=== PATIENT | female | born 1945 | race Caucasian/White ===

== ENCOUNTER → 2017-01-08 | Outpatient (CLI) | payer MEDICARE, OTHER | END | disposition home or self-care (01) | LOC: GMAM 14:37 | PROVIDERS: ATTEND Family Medicine | DX: I10 Essential (primary) hypertension (principal) ==

== ENCOUNTER → 2017-02-07 | Outpatient (CLI) | payer MEDICARE, OTHER ==
--- NOTE | 2017-02-07 12:04 | US ---
EXAM DESCRIPTION: Thyroid CLINICAL HISTORY: 71 years, Female, ABNORMAL CANDIDA, THYROID NODULE, SX/SX OF CIRC SYST COMPARISON: FINDINGS: Right lobe of thyroid 4.4 x 1.4 x 2.3 cm. Left lobe 4.1 x 1.2 x 2.0 cm. Isthmus 2 mm. To mildly complex nodules lower right lobe of the thyroid. Nodules hyperechoic centrally and hypoechoic periphery. These measure 1.9 x 1.7 x 1.8 cm and 1.3 x 1.3 x 1.3 cm. Slightly small nodule more superiorly in the right lobe 9 x 7 x 6 mm. Left lobe has a hypoechoic nodule well-circumscribed 5 x 4 x 4 mm lower portion IMPRESSION: Bilateral thyroid nodules identified, more on the right side. Largest nodule is less than 2 cm. None of the nodules appear particularly worrisome but consider follow-up study to assess for stability. Electronically signed by: Beto Vergara MD 02/07/2017 12:03 PM CDT
--- NOTE | 2017-02-07 12:17 | US ---
EXAM DESCRIPTION: Carotid Duplex CLINICAL HISTORY: 71 years, Female, ABNORMAL CANDIDA, carotid artery disease, SX/SX OF CIRC SYST COMPARISON: FINDINGS: Scattered moderate atherosclerotic change in the right common carotid artery. In the bulb with there is about 40% stenosis. Peak velocity internal carotid artery 95 cm/s. Ratio common carotid artery of 1.1. On the left side slightly more irregular plaque internal carotid artery. Stenosis in the bulb region about 26%. Stenosis in the proximal left internal carotid artery with mixed plaque about 25%. Peak velocity left internal carotid artery 86 cm/s. Ratio common carotid artery about 0.9. There is antegrade vertebral artery flow bilaterally IMPRESSION: 1. No hemodynamic significant lesion identified. Mild atherosclerotic changes in the carotids bilaterally, right slightly greater than left. Maximum stenosis about 40% or less. 2. Antegrade vertebral artery flow bilaterally Electronically signed by: Beto Vergara MD 02/07/2017 12:16 PM CDT
--- NOTE | 2017-02-07 12:29 | US ---
EXAM DESCRIPTION: Extremity,Lower Dontrell Arteries CLINICAL HISTORY: 71 years, Female, ABNORMAL CANDIDA, THYROID NODULE, SX/SX OF CIRC SYST , pain COMPARISON: None available FINDINGS: Scattered mild atherosclerotic change present in the right common femoral artery and superficial femoral artery. Triphasic waveforms throughout from the right groin to the runoff vessels. Velocities above the right trifurcation measure between about 70-110 cm/s. The peroneal and dorsalis pedis arteries had velocities about 60 cm/s. Posterior tibial artery velocity elevated about 120 cm On the left side, triphasic waveforms from the groin to the trifurcation with velocities measuring between about 90-120 cm/s. The peroneal and dorsalis pedis arteries are triphasic with velocities between about 50 to 80 cm/s. Biphasic posterior tibial artery 115 cm/s IMPRESSION: Scattered mild atherosclerotic changes present bilaterally without significant stenosis. Waveforms are all triphasic seven for biphasic left posterior tibial artery Electronically signed by: Beto Vergara MD 02/07/2017 12:28 PM CDT
== END ==
LOC: US 11:25
PROVIDERS: ATTEND Family Medicine
DX: E04.1 Nontoxic single thyroid nodule (principal); R09.89 Other specified symptoms and signs involving the circulatory and respiratory systems; R94.8 Abnormal results of function studies of other organs and systems

== ENCOUNTER → 2017-04-30 | Outpatient (CLI) | payer MEDICARE, OTHER | LOC: GMAM 22:26 | PROVIDERS: ATTEND Family Medicine | DX: E04.9 Nontoxic goiter, unspecified (principal) ==

== ENCOUNTER → 2017-09-04 | Outpatient (CLI) | payer MEDICARE, OTHER | END | disposition home or self-care (01) | LOC: GMAM 14:26 | PROVIDERS: ATTEND Family Medicine | DX: D64.9 Anemia, unspecified (principal); E04.9 Nontoxic goiter, unspecified ==

== ENCOUNTER → 2018-04-24 | Outpatient (CLI) | payer MEDICARE, OTHER | LOC: GMAM 13:17 | PROVIDERS: ATTEND Family Medicine | DX: D64.9 Anemia, unspecified (principal); E04.9 Nontoxic goiter, unspecified ==

== ENCOUNTER → 2018-04-30 | Outpatient (CLI) | payer MEDICARE, OTHER ==
--- NOTE | 2018-04-30 15:53 | US ---
EXAM DESCRIPTION: Venous,Lower Extremity RT CLINICAL HISTORY: LOWER LIMB EDEMA COMPARISON: None Available. TECHNIQUE: Right lower extremity venous duplex FINDINGS: Doppler evaluation of the right lower extremity deep veins was performed. Normal color flow is seen in the common femoral, superficial femoral, profunda femoral and greater saphenous veins. Normal flow is seen in the popliteal vein and veins below the knee in the calf. Normal venous compressibility and flow augmentation. Hypoechoic structure in the right popliteal fossa measures 1.9 x 1.4 x 6.1 cm with an echogenic focus with shadowing inferiorly. A Mak cyst with calcified internal debris would be considered most likely. IMPRESSION: Negative for evidence of deep venous thrombosis on right lower extremity venous Doppler sonogram. Right popliteal Mak's cyst. Electronically signed by: Rg Marie MD 04/30/2018 3:52 PM CANE CUTTER
== END ==
LOC: US 15:03
PROVIDERS: ATTEND Family Medicine
DX: R60.9 Edema, unspecified (principal); M71.21 Synovial cyst of popliteal space [Baker], right knee

== ENCOUNTER → 2018-06-27 | Outpatient (CLI) | payer MEDICARE, OTHER ==
--- NOTE | 2018-06-27 16:10 | RAD ---
EXAM DESCRIPTION: Small Bowel Series CLINICAL HISTORY: ANGIODYSPLASIA OF STOMACH DUODENUM BLEEDING COMPARISON: [None] TECHNIQUE: [Preliminary AP superintendent cemetery radiographs.] The patient swallowed barium pill and water under fluoroscopy. Patient then swallowed The images were obtained with the patient upright and horizontal. After the contrast was ingested, additional images were obtained of the abdomen with the overhead radiographic system, at certain intervals determined by the radiologist, patient in supine position, until contrast was seen in the proximal colon. Fluoroscopy was performed with manual compression. Additional images were obtained with compression and patient supine. 5 overhead images were obtained. 5 fluoroscopic images taken. Fluoroscopy time was 1.8 minutes. Cumulative dose: 111.91 mGy. 18.34 Gy-sq cm. FINDINGS: Preliminary superintendent [facility] film shows constipation in the proximal mid and distal colon. Minimal gas in the small bowel. Diffuse spondylosis in the lumbar spine with dextroscoliosis. Contrast reached the terminal ileum and cecum in approximately 1 hour. No fixed or distended loops. No dominant intraluminal mass. No obstruction in the small bowel or the ileocecal junction. Normal compression of the terminal ileum and cecum. Patient nontender during compression of all quadrants of the abdomen and pelvis. No contrast extravasation. IMPRESSION: Small bowel contrast series with fluoroscopic compression showing no abnormalities including extravasation of contrast or mass. Electronically signed by: Bryan Nguyen MD 06/27/2018 4:09 PM IRON GUARDRAIL INSTALLER
== END ==
LOC: RAD 09:19
PROVIDERS: ATTEND Internal Medicine Gastroenterology
DX: K31.811 Angiodysplasia of stomach and duodenum with bleeding (principal); D50.0 Iron deficiency anemia secondary to blood loss (chronic)

== ENCOUNTER → 2018-07-12 | Outpatient (CLI) | payer MEDICARE, OTHER ==
--- NOTE | 2018-07-13 17:30 | MRI ---
EXAM DESCRIPTION: Lumbar Spine w/o Contrast : Magnetic Resonance Imaging. CLINICAL HISTORY: INTERVERTEBRAL DISC DISORDERS WITH RADICULOPATHY COMPARISON: None. TECHNIQUE: Multiplanar, multiple standard sequences, non contrast MRI, lumbar spine. FINDINGS: L5-S1: Disc desiccation and moderate disc space loss. Posterior broad-based disc osteophyte bulge abutting the thecal sac and the bilateral S1 nerves. Modic type II endplate reactive changes in the midline. Disc osteophyte bulge to the right with Modic type III changes and foraminal stenosis. Moderate to severe left foraminal narrowing. Bilateral facet arthrosis hypertrophy and flavum ligament hypertrophy. Mild canal narrowing. L4-5: Disc desiccation minimal narrowing on the left and moderate narrowing on the right. Modic type III reactive changes to the right of midline with disc osteophyte complex encroaching on the foramen and nerve root with stenosis. Mild to moderate right foraminal narrowing. Posterior broad-based disc osteophyte bulge abutting the thecal sac and the bilateral L5 nerve roots. Minimal effacement of the right subarticular recess. L3-4: Modic type II endplate reactive changes in the midline with posterior broad-based disc osteophyte bulge abutting the thecal sac and the descending L4 nerves. Disc osteophyte also encroaching on the right subarticular recess and the right L4 nerve. Disc osteophyte bulge into the left foramen with moderate narrowing. Bilateral facet joint arthrosis and hypertrophy and ligament hypertrophy. Right paracentral canal AP diameter 9 mm. L2-3: Disc desiccation with moderate disc space loss more severe on the left. Type III Modic endplate reactive changes on the left with disc osteophyte encroachment on the left foramen and compromise of the L2 nerve. Posterior broad-based disc osteophyte bulge abutting the thecal sac. Mild right foraminal narrowing. Marked anterior disc bulge and hypertrophic endplates. Posterior bilateral hypertrophic facets and ligaments. L1-L2: Disc desiccation with moderate to severe disc space loss worse on the left. Posterior broad-based disc osteophyte bulge into the canal abutting the thecal sac. No significant canal narrowing. Bilateral hypertrophic facet joints and flavum ligaments, more on the left. Moderate left foraminal narrowing. Mild right foraminal narrowing. Anterior disc desiccation and hypertrophic endplates. T12-L1: Posterior broad-based disc bulge and mild to moderate disc space narrowing. Bilateral facet hypertrophic arthrosis and hypertrophic flavum ligaments. Disc is abutting the cord. Conus at L1. The disc and facet complex encroachment on the right foramen which is stenotic. Moderate narrowing left foramen. Schmorl's node inferior T12. Paravertebral soft tissues no muscle atrophy paraspinal and left psoas.. Otherwise normal marrow signal in the remaining vertebral bodies and the posterior elements. Vertebral bodies are not compressed at any level. IMPRESSION: 1. Right side advanced spondylosis with foraminal stenosis and moderate to severe left foraminal narrowing. Correlate for bilateral L5 radiculopathy. 2. Advanced spondylosis at L4-5 to the right of midline with foraminal stenosis and compromise of the right L4 nerve. Posterior disc osteophyte bulge in the canal abutting the bilateral L5 nerve roots. Minimal narrowing of the right subarticular recess. 3. Moderate spondylosis L3-4. Posterior disc osteophyte bulge protruding on the descending L4 nerves and effacement of the right subarticular recess with possible compromise right L4 nerve. Borderline mild central canal stenosis. 4. Advanced spondylosis at L2-L3 to the left of midline encroaching on the canal and left foramen with compromise of the left L2 nerve. 5. moderate left foraminal narrowing at L1-L2. Posterior broad-based disc osteophyte bulge narrowing the canal. 6. Disc and facet spur complex at T12-L1 encroachment on the right foramen which is stenotic. Possible compromise right T12 nerve moderate narrowing left foramen. Electronically signed by: Bryan Nguyen MD 07/13/2018 5:28 PM ADMINISTRATIVE DIETITIAN
== END ==
LOC: MRI 13:03
PROVIDERS: ATTEND Psychiatry & Neurology Neurology
DX: M51.16 Intervertebral disc disorders with radiculopathy, lumbar region (principal); M47.896 Other spondylosis, lumbar region; M25.78 Osteophyte, vertebrae

== ENCOUNTER → 2018-07-18 | Outpatient (CLI) | payer MEDICARE, OTHER ==
--- NOTE | 2018-07-18 09:41 | RAD ---
EXAM DESCRIPTION: Hand,Right 3 Views CLINICAL HISTORY: M79.641 COMPARISON: None. TECHNIQUE: 3 views right. FINDINGS: No fracturing is detected. Severe degenerative changes are observed in the metacarpal carpal articulation of the first digit. Degenerative changes are also observed in the metacarpal carpal articulation of the second digit. Distal interphalangeal joint arthritis is observed throughout the hand. Some calcification of the trigone or fibrocartilage is noted. Radial side intracarpal arthritis is observed. Some soft tissue swelling is observed distally about the wrist. IMPRESSION: Degenerative changes are observed. No fracturing is detected. Electronically signed by: Rafael Dodge MD 07/18/2018 9:39 AM [facility]
--- NOTE | 2018-07-18 09:54 | RAD ---
EXAM DESCRIPTION: Hand,Left 3 Views CLINICAL HISTORY: M79.641 COMPARISON: None Available. TECHNIQUE: AP, LATERAL, AND OBLIQUE FINDINGS: The visualized bones appear well mineralized. No acute fracture or dislocation. The soft tissues appear grossly unremarkable. Severe osteoarthritis of the first carpometacarpal joint is noted. Moderate degenerative changes are identified in the first metacarpophalangeal joint and interphalangeal joint of the thumb. Chondrocalcinosis is also noted. IMPRESSION: Severe osteoarthritis of the first carpometacarpal joint is noted. Moderate degenerative changes are identified in the first metacarpophalangeal joint and interphalangeal joint of the thumb. Electronically signed by: Britt Botello MD 07/18/2018 9:52 AM [facility]
== END ==
LOC: RAD 08:40
PROVIDERS: ATTEND Orthopaedic Surgery
DX: M18.12 Unilateral primary osteoarthritis of first carpometacarpal joint, left hand (principal); M79.641 Pain in right hand

== ENCOUNTER → 2018-08-15 | Outpatient (CLI) | payer MEDICARE, OTHER | LOC: RESP 14:57 | PROVIDERS: ATTEND Orthopaedic Surgery | DX: Z01.818 Encounter for other preprocedural examination (principal) ==

== ENCOUNTER 2018-08-27 05:37 | Day surgery (SDC) | payer MEDICARE, OTHER ==
--- NOTE | 2018-08-26 13:16 | HP ---
CHIEF COMPLAINT: Bilateral hand pain and numbness. HISTORY OF PRESENT ILLNESS: Ms. Rodgers is a 72-year-old female with a history of numbness in both hands. It has been going on for about 6 months. Currently, symptoms are worse on the right than on the left. She has had a history of carpal tunnel release done somewhere on the order of about 15 years ago. She denies any current symptoms proximal to the wrist. PAST SURGICAL HISTORY: 1. Bilateral total knee replacement. 2. Bilateral carpal tunnel release. 3. Achilles tendon repair. MEDICATIONS: 1. Metoprolol. 2. Spironolactone. 3. Levothyroxine. 4. Tizanidine. 5. Tramadol. 6. Multiple vitamins. ALLERGIES: NO KNOWN DRUG ALLERGIES. FAMILY HISTORY: None pertinent to today's complaint. SOCIAL HISTORY: The patient does not drink, smoke or use any illicit drugs. REVIEW OF SYSTEMS: Negative except as indicated in the History of Present Illness. PHYSICAL EXAMINATION: VITAL SIGNS: Blood pressure 172/76. Pulse 67. Height 5'2". Weight1 217 pounds. MENTAL STATUS: The patient is awake, alert, and is able to give a good history and participate in the physical. The patient is oriented to person, place and time. SKIN: Normal tone and turgor. MUSCULOSKELETAL: She has positive carpal compression test bilaterally. She has thenar atrophy bilaterally. She has faint scars from previous carpal tunnel release. She has full associate director of nursing strength, 5/5 abduction strength. She has full range of motion of the digits. She has no obvious hypothenar atrophy. ASSESSMENT: 1. Carpal tunnel syndrome. PLAN: The plan at this point is for carpal tunnel release on the right. We have discussed the risks, benefits, and alternatives to that and the patient has given informed consent. #[id number] [facility]
[2018-08-27] MEDS ORDERED: LIDOCAINE 1% 10 ML VIAL INJ ONE ×2 (08:09→10:00)
[2018-08-27] MEDS ORDERED: BUPIVACAINE 0.25% INJ 30 ML VIAL INJ ONE (08:09)
[2018-08-27] MEDS ORDERED: ceFAZolin SODIUM 1 GM VIAL ONE (08:21)
[2018-08-27] MEDS ORDERED: LACTATED RINGERS 1,000 ML ONE (08:21)
[2018-08-27] MEDS ORDERED: SODIUM CHL 0.9% 100ML MINI-BAG 100 ML IVPB ONE (08:21)
[2018-08-27 08:49] VITALS: O2SAT 98
[2018-08-27] MEDS ORDERED: fentaNYL CITRATE INJ 50 MCG/ML AMP ONE (09:44)
[2018-08-27] MEDS ORDERED: PROPOFOL 200 MG/20 ML VIAL IV ONE (10:00)
[2018-08-27] MEDS: VANCOMYCIN HCL INJ 1,000 MG VIAL IVPB ONE ×2 (10:21→10:25)
[2018-08-27] MEDS: ceFAZolin SODIUM 1 GM VIAL ONE ×2 (10:21→10:25)
[2018-08-28 11:31] VITALS: BP 154/52; TEMP 97.7
--- NOTE | 2018-08-29 08:08 | OP ---
DATE OF PROCEDURE: 08/27/18 PREOPERATIVE DIAGNOSIS: 1. Carpal tunnel syndrome. POSTOPERATIVE DIAGNOSIS: 1. Carpal tunnel syndrome. PROCEDURE: 1. Carpal tunnel release. SURGEON: Daniel Velasquez MD. BARREL COOPER: Bryan Yung CST, SA-C. ANESTHESIA: Local with sedation. COMPLICATIONS: None. FINDINGS: Thickening of the transverse carpal ligament with significant scar tissue. There were adhesions of the nerve from previous carpal tunnel release. INDICATION: Ms. Rodgers has a history of severe symptoms consistent with carpal tunnel syndrome. She has had carpal tunnel release in the past which appears to be done through an arthroscopic portal somewhere on the order of 16 to 17 years ago. She has begun having symptoms again and because of her ongoing symptoms, she has requested operative intervention. After discussing the risks, benefits and alternatives to that, the patient has given informed consent for carpal tunnel release. PROCEDURE: The patient was brought to the Operating Room and placed in the supine position. Sedation was administered and local anesthetic was injected into the operative area under sterile conditions. After the injection of anesthetic, the arm was sterilely prepped and draped. A longitudinal incision was made directly overlying the transverse carpal ligament and blunt dissection was carried down to the ligament. The transverse carpal ligament was sharply transected along its length and a [place] elevator was used to ensure complete release of the ligament. Once release had been confirmed, the wound was thoroughly irrigated and the wound was closed with Nylon suture. A sterile dressing was placed and the patient was taken to the Day Surgery Unit. POSTOPERATIVE PLAN: The patient has been encouraged to do range of motion of the digits and will followup with us in two days. #[id number] [facility]
== END 2018-08-27 11:25 | disposition home or self-care (01) ==
LOC: AMB 05:37
PROVIDERS: ATTEND Orthopaedic Surgery
DX: G56.01 Carpal tunnel syndrome, right upper limb (principal); I10 Essential (primary) hypertension; K21.9 Gastro-esophageal reflux disease without esophagitis; E66.9 Obesity, unspecified; Z96.653 Presence of artificial knee joint, bilateral; Z79.82 Long term (current) use of aspirin; Z79.899 Other long term (current) drug therapy
CPT/HCPCS: 01810; 64721; 80307; J0690; J3010; J3370; J3490; J7050; J7120

== ENCOUNTER → 2019-02-18 | Outpatient (CLI) | payer MEDICARE, OTHER ==
--- NOTE | 2019-02-18 19:43 | MRI ---
EXAM DESCRIPTION: Cervical Spine: MRI. CLINICAL HISTORY: 73 years Female CERVICAL RADICULOPATHY COMPARISON: None. TECHNIQUE: Multiplanar, high-field MRI, multiple sequences, non-contrast Cervical spine. FINDINGS: C3-C4: Disc desiccation and 2 millimeter anterolisthesis. Left uncinate spur and left facet hypertrophic arthrosis with moderate to severe left neural foraminal narrowing. Canal and right neural are patent. C4-C5: Disc desiccation minimal disc space loss and 4 mm anterolisthesis. Posterior broad-based disc bulge more to the right of midline than the left. Posterior ligament thickening. Abutting the cord with borderline central canal stenosis. Hypertrophic left facet arthrosis. Bilateral uncinate spurs with mild to moderate neural foraminal narrowing more left than right. Anterior disc bulging and endplate ridging. C5-C6: Disc desiccation and moderate disc space loss. Anterior bulging and endplate ridging. Posterior broad-based bulge and midline posterior disc impressing on the cord. Moderate canal narrowing. Bilateral uncinate spurs and bilateral posterior ligament thickening. Bilateral hypertrophic facet arthrosis more left than right. Mild to moderate left neural foraminal stenosis and borderline mild right neural foraminal stenosis. C6-C7: Disc desiccation moderate disc space loss. Anterior disc bulging and endplate ridging. Posterior broad-based disc osteophyte bulge almost abutting the cord. Minimal hypertrophic arthrosis right facet joint. Right uncinate spur and mild right neural foraminal stenosis. Mild to moderate left neural foraminal narrowing. Mild canal narrowing. C7-T1 disc bulge in the midline. Left facet hypertrophic arthrosis. Mild to moderate neural foraminal narrowing. Canal and right neuroforamen are patent. Trace anterolisthesis T1-T2. Minimal disc desiccation with no bulging. Bilateral hypertrophic facet arthrosis and mild neural foraminal narrowing. Canal is patent. Normal signal in the C2-C3 disc with no bulging. Disc spaces preserved. Canal and neural foramina are patent. Facet joints unremarkable. Spinal alignment kyphosis C4-C6.. No cord compression or cord edema. Atlantoaxial joint with moderate hypertrophic changes in the posterior bulge of the anterior ligament but not abutting the cord.. Base of the cerebellar tonsils is just above the foramen magnum. Paravertebral soft tissues 1.6 cm complex nodule in the right lobe of the thyroid.. Vertebral bodies are not compressed at any level. Otherwise normal marrow signal in the remaining vertebral bodies and the posterior elements. IMPRESSION: 1. Multiple levels of disc space spondylosis, disc space loss, desiccated bulging discs, thickening of the posterior canal flavum ligaments and hypertrophic facet arthrosis. Degenerative kyphosis mid cervical spine. 2. Multifactorial severe left neural foraminal narrowing at C3-C4 with 2 mm anterolisthesis. 3. C4-C5 moderate anterolisthesis and multifactorial borderline central canal stenosis including posterior broad-based disc bulge. Bilateral mild to moderate neural foraminal narrowing. 4. Multifactorial mild to moderate left neural foraminal stenosis and borderline mild right neural foraminal stenosis at C5-C6. Also midline posterior disc impressing on the cord. 5. Posterior broad-based disc osteophyte C6-C7 bulge abutting the cord. Multifactorial mild right neural foraminal stenosis. 6. 1.6 cm incidental thyroid nodule. Recommend thyroid US. Reference: J Am Tamiko Radiol. 2015 Jul;12(2): 143-50. Electronically signed by: Bryan Nguyen MD 02/18/2019 7:41 PM CDT
== END ==
LOC: MRI 09:00
PROVIDERS: ATTEND Psychiatry & Neurology Neurology
DX: M47.22 Other spondylosis with radiculopathy, cervical region (principal); M43.12 Spondylolisthesis, cervical region; M48.02 Spinal stenosis, cervical region; M25.78 Osteophyte, vertebrae; E04.1 Nontoxic single thyroid nodule

== ENCOUNTER → 2019-02-19 | Outpatient (CLI) | payer MEDICARE, OTHER ==
--- NOTE | 2019-02-20 10:24 | MRI ---
EXAM DESCRIPTION: MRI right shoulder CLINICAL HISTORY: Right shoulder pain COMPARISON: None. TECHNIQUE: Multiplanar, multisequence MR images of the right shoulder FINDINGS: Complete supraspinatus tendon tear retracted to the medial humeral level. Moderate muscle volume loss and grade 2 fatty infiltration. Diffuse thinning of the anterior infraspinatus tendon with high-grade partial articular and interstitial tear of the anterior tendon. Small volume of fluid tracking back along the myotendinous junction. Moderate to severe muscle volume loss with grade 2 fatty infiltration Teres minor tendon intact. Mild muscle volume loss and grade 2 fatty infiltration. Subscapularis tendinosis. Moderate muscle volume loss and grade 2 fatty infiltration Long head biceps tendon intact. Degenerative signal in the labral anchor and superior labrum with degenerative labral tear posterior superior. No acute labral detachment Glenoid chondrosis with diffuse chondral thinning. Focal full-thickness chondral loss over the upper central glenoid and a small subchondral cyst with surrounding edema over about 6 mm. Diffuse high-grade chondral thinning of the humeral head without focal osteochondral lesion. Moderate joint effusion with degenerative synovitis and a few thin septations. No intra-articular loose body Moderate acromioclavicular osteoarthritis with osteophytes indenting the supraspinatus. Lateral downsloping of the acromion with prominent inferior acromial spur IMPRESSION: Complete supraspinatus tendon tear with retraction. Contiguous high-grade partial tear of the anterior infraspinatus tendon. Posterior superior degenerative labral tear Glenohumeral chondrosis Electronically signed by: Albino Bravo MD 02/20/2019 10:23 AM CDT
== END ==
LOC: GMAM 14:59
PROVIDERS: ATTEND Family Medicine
DX: M75.121 Complete rotator cuff tear or rupture of right shoulder, not specified as traumatic (principal); M94.211 Chondromalacia, right shoulder; M54.12 Radiculopathy, cervical region; D64.9 Anemia, unspecified

== ENCOUNTER → 2019-03-13 | Outpatient (CLI) | payer MEDICARE, OTHER | LOC: GMAM 10:40 | PROVIDERS: ATTEND Family Medicine | DX: E04.9 Nontoxic goiter, unspecified (principal); I10 Essential (primary) hypertension ==

== ENCOUNTER → 2019-04-28 | Outpatient (CLI) | payer MEDICARE, OTHER | LOC: GMAM 10:35 | PROVIDERS: ATTEND Family Medicine | DX: E03.9 Hypothyroidism, unspecified (principal) ==

== ENCOUNTER → 2019-05-19 | Outpatient (CLI) | payer MEDICARE, OTHER ==
--- NOTE | 2019-05-19 20:15 | US ---
EXAM DESCRIPTION: Extremity,Lower Dontrell Arteries: Ultrasound. CLINICAL HISTORY: ABNORMAL RESULT OF ANKLE BRACHIAL INDEX STUDY. COMPARISON: None. TECHNIQUE: Doppler evaluation of the bilateral lower extremity arterial flow waveforms and velocities. FINDINGS: Arterial waveforms in the right lower extremity are all multiphasic.. Arterial waveforms in the left lower extremity are all multiphasic. Comments: Velocities are relatively symmetric. Slightly higher in the right thigh compared to the left. IMPRESSION: Doppler evaluation of arterial waveforms and velocities showing no evidence of significant atherosclerotic occlusive disease in the bilateral lower extremities. If this result is discordant with ankle brachial index examination, consider follow-up CTA of the bilateral lower extremities using runoff protocol. Electronically signed by: Bryan Nguyen MD 05/19/2019 8:14 PM AIR CONDITIONING UNIT TESTER
== END ==
LOC: US 10:00
PROVIDERS: ATTEND Family Medicine
DX: R94.39 Abnormal result of other cardiovascular function study (principal)

== ENCOUNTER → 2019-12-30 | Outpatient (CLI) | payer MEDICARE, OTHER ==
--- NOTE | 2019-12-31 11:33 | MRI ---
EXAM DESCRIPTION: Thoracic Spine w/o Contrast: Magnetic Resonance Imaging. CLINICAL HISTORY: PAIN IN THORACIC PAIN COMPARISON: MRI cervical spine February 2019. TECHNIQUE: Multiplanar, multiple standard sequences, non contrast MRI, thoracic spine. FINDINGS: Every disc from T5-T6 to T12-L1 with desiccation and posterior bulging. At T10-11, posterior disc bulges are accompanied by posterior endplate spurs and retrolisthesis which is almost abutting the cord. Bilateral involvement of the foramina and hypertrophic facet arthrosis causing bilateral foraminal stenosis. Similar findings at T11-T12 with moderate to severe narrowing of the left foramen. T12-L1 disc level the same except for left foraminal narrowing and no stenosis. T5-T6 disc is impressing on the ventral cord with no canal or foraminal stenosis. T3-T4 significant disc space loss with anterolisthesis and disc desiccation. Disc is either abutting or impressing on the ventral cord. Canal patent with moderate to severe bilateral foraminal narrowing. Minimal posterior disc bulge at T1-T2 with canal and foraminal narrowing. Remaining discs with normal signal. Disc spaces are preserved. Canal and foramina are patent. Facet joints are unremarkable. Facet joint arthrosis and hypertrophy at multiple levels predominantly foraminal narrowing mid and lower thoracic spine. Hyperintense T1 and T2 circumscribed hemangioma at T7. Also hyperintense on STIR images. Conus terminates at L1. Cord with normal signal, no compression. Lumbar thoracic dextroscoliosis and lower thoracic levoscoliosis. Paravertebral soft tissues are unremarkable. Otherwise normal marrow signal in the remaining vertebral bodies and the posterior elements. Vertebral bodies are not compressed at any level. IMPRESSION: 1. Multiple levels of disc desiccation, disc space loss, endplate spondylosis, facet arthrosis and hypertrophy in the thoracic spine. 2. Disc spur complex causing cord impingement T3-T4, T5-T6 and T7-T8. 3. Multiple levels of unilateral or bilateral foraminal stenosis caused by endplate spurs and hypertrophic facet arthrosis. Please see above details. Electronically signed by: Bryan Nguyen MD 12/31/2019 11:31 AM CDT
== END ==
LOC: MRI 10:04
PROVIDERS: ATTEND Nurse Practitioner Gerontology
DX: M51.34 Other intervertebral disc degeneration, thoracic region (principal); M47.24 Other spondylosis with radiculopathy, thoracic region; M46.96 Unspecified inflammatory spondylopathy, lumbar region; M47.812 Spondylosis without myelopathy or radiculopathy, cervical region; M50.90 Cervical disc disorder, unspecified, unspecified cervical region; M25.78 Osteophyte, vertebrae

== ENCOUNTER → 2020-03-30 | Outpatient (CLI) | payer MEDICARE, OTHER | LOC: GMAM 14:27 | PROVIDERS: ATTEND Family Medicine | DX: E03.9 Hypothyroidism, unspecified (principal); D52.9 Folate deficiency anemia, unspecified; D64.9 Anemia, unspecified; I10 Essential (primary) hypertension ==

== ENCOUNTER → 2020-04-08 | Outpatient (CLI) | payer MEDICARE, OTHER ==
--- NOTE | 2020-04-13 15:07 | MAM ---
EXAM DESCRIPTION: 3D Screening BILATERAL : Digital Mammography. CLINICAL HISTORY: 74 years Female ANNUAL SCREENING . No complaints. No family history breast cancer. Menarche age 15. Childbirth age 24. Menopause age unknown. No HRT. Lifetime risk of developing breast cancer (Tyrer-Cuzick model)(%): 3.6. COMPARISON: Baseline study at this facility.. No prior reports available. TECHNIQUE: Bilateral CC and MLO projection full-field images, digital tomosynthesis mammographic technique. Bilateral digital 2-D full-field MLO images. CAD available for 2-D images. FINDINGS: The breast parenchymal density pattern is: Scattered areas of fibroglandular density. No skin thickening or nipple retraction. Soft tissue density associated with heterogeneous microcalcifications lower inner quadrant of the anterior third of the right breast. Focal asymmetry in the posterior lateral left breast at 3:30. Bilateral solitary microcalcifications.. No new focal, stellate mass or density, focal asymmetry , and no suspicious microcalcifications bilaterally. Stable mammograms compared to prior study. IMPRESSION: BI-RADS CATEGORY: 0 - INCOMPLETE- Need additional imaging evaluation. RECOMMENDATIONS: FOLLOW-UP: Recall for additional imaging: Bilateral full-field ileum projection to the and tomosynthesis. Bilateral directed ultrasound region of interest.. Written communication concerning the IMPRESSION and Follow-up, will be mailed to the patient and referring health care provider. Electronically signed by: Bryan Nguyen MD 04/13/2020 3:06 PM BIOINFORMATICS TECHNICIAN
== END ==
LOC: MAMMO 11:51
PROVIDERS: ATTEND Family Medicine
DX: Z12.31 Encounter for screening mammogram for malignant neoplasm of breast (principal)

== ENCOUNTER → 2020-04-23 | Outpatient (CLI) | payer MEDICARE, OTHER | LOC: GMAM 13:20 | PROVIDERS: ATTEND Family Medicine | DX: E03.9 Hypothyroidism, unspecified (principal); I10 Essential (primary) hypertension; I50.32 Chronic diastolic (congestive) heart failure ==

== ENCOUNTER → 2020-05-10 | Outpatient (CLI) | payer MEDICARE, OTHER ==
--- NOTE | 2020-05-11 17:47 | MAM ---
EXAM DESCRIPTION: 3D Diagnostic, Bilateral (accession [id number]), Breast,Right (accession [id number]): Ultrasound CLINICAL HISTORY: 74 yearsFemaleABN MAMMO . Focal asymmetry left breast. Heterogeneous microcalcifications right breast Lifetime risk of developing breast cancer (Tyrer-Cuzick model)(%): 3.6. COMPARISON: Bilateral screening digital breast tomosynthesis April 08. TECHNIQUE: Bilateral LM projection full-field images, digital tomosynthesis technique. Bilateral 2-D digital full-field images: Projection. CAD available for 2-D images.. Transcutaneous scanning of the right breast utilizing webb-scale and Doppler modes. Scanning performed by the naval surface fire support planner and Dr. Nguyen. FINDINGS: The breast parenchymal density pattern is: Scattered areas of fibroglandular density. Skin mole marker inferior lateral left breast. Grouped microcalcifications in the anterior medial lower quadrant right breast are associated with soft tissue density and benign in morphology and distribution. Most likely a degenerating fibroadenoma. Focal asymmetry middle third left breast, 7 cm from the nipple at 4:00 consistent with a lymph node. Calcifications associated with a soft tissue density more anterior and most likely a degenerating fibroadenoma. No skin thickening or nipple retraction Ultrasound: Scanning right breast 3 cm from the nipple at 3:00. Subcutaneous echogenic material probably old subcutaneous lesion or lipoma. No dominant solid mass, no distinct cyst, no fluid collection and no large calcifications. IMPRESSION: Benign exam. BIRAD CATEGORY: 2 BENIGN FINDINGS. RECOMMENDATIONS: FOLLOW UP: Routine digital bilateral mammographic screening, one year interval from date Written communication explaining the IMPRESSION and follow-up, will be mailed to the patient and referring health care provider. The FINDINGS and the FOLLOW-UP plan were reviewed in person with the patient after the examination. According to the [employer], yearly mammograms are recommended starting at age 40 and continuing as long as a woman is in good health. Any breast change noted on a breast self-exam should be reported promptly to the patient's healthcare provider. Breast MRI is recommended for women with an approximately 20-25% or greater lifetime risk of breast cancer, including women with a strong family history of breast or ovarian cancer and women who have been treated for Hodgkin's disease. A negative mammographic report should not delay tissue diagnosis in patients with significant clinical history or physical findings. Extremely dense breast tissue limits the sensitivity of digital mammography. Electronically signed by: Bryan Nguyen MD 05/11/2020 5:45 PM [facility]
== END ==
LOC: MAMMO 10:51
PROVIDERS: ATTEND Family Medicine
DX: R92.2 Inconclusive mammogram (principal)
CPT/HCPCS: 76641; 77066; G0279

== ENCOUNTER → 2020-07-28 | Outpatient (CLI) | payer MEDICARE, OTHER | LOC: GMAM 16:43 | PROVIDERS: ATTEND Family Medicine | DX: N95.0 Postmenopausal bleeding (principal); R09.02 Hypoxemia; I10 Essential (primary) hypertension ==